=== PATIENT | male | born 1935 | race Caucasian/White ===

== ENCOUNTER 2019-01-22 05:53 | Observation (INO) | payer OTHER ==
[~2019-01-22] VITALS: Ht 185.4 cm; Wt 84.1 kg
--- NOTE | ~2019-01-22 | DS ---
PATIENT:JOSE LOCKETT :39 MEDICAL RECORD: [id number] DISCHARGE SUMMARY ADMISSION DATE: 01/22/19 DISCHARGE DATE: DISCHARGE DIAGNOSES: 1. Angina. 2. Coronary artery disease. 3. Hypertension. 4. Status post coronary bypass graft surgery. HOSPITAL COURSE: Mr. Lockett began having chest pain 2 weeks ago, he had an episode of chest pain, got admitted. His troponin was normal. He had the addition of lisinopril to his atenolol and we increased his atenolol from 25 mg b.i.d. to 50 mg b.i.d., added lisinopril 10 mg b.i.d. Will follow up next week to see with optimal medical management if he continues to have pain. TRANSINT:[id number] Voice Confirmation ID: [id number] DOCUMENT ID: [id number] AGUSTINA DAVID MD CC: [id number] DICTATION DATE: 01/22/19 1208 BATHROOM TILING PROFESSIONAL: 01/22/19 1258 ADM IN [address] [place] [address]
--- NOTE | ~2019-01-22 | DS ---
PATIENT:JOSE LOCKETT :[birth year] MEDICAL RECORD: [id number] DISCHARGE SUMMARY ADMISSION DATE: 01/22/19 DISCHARGE DATE: 01/23/19 DATE OF SERVICE: 01/23/2019 DIAGNOSES: 1. Non-Q-wave myocardial infarction. 2. Coronary artery disease. 3. Hypertension. 4. Hyperlipidemia. HISTORY AND HOSPITAL COURSE: Mr. Lockett presented with a non-Q-wave myocardial infarction, found to have significant disease of the vein graft to the RCA. Underwent successful PTCA and stent of this territory. Discharged home with the addition of Plavix to his medical regimen. He is already on a beta-edson and statin. He will follow up with [facility] in 1 month. TRANSINT:[id number] Voice Confirmation ID: [id number] DOCUMENT ID: [id number] AGUSTINA DAVID MD CC: [id number] DICTATION DATE: 01/23/19 1010 HVAC MANAGER: 01/23/19 1039 DIS IN 01/23/19 [facility] [address] [id number]
--- NOTE | ~2019-01-22 | OP ---
PATIENT NAME: JOSE AGUAYO MEDICAL RECORD: [id number] :39 LOCATION:D.M2 D.2123 ADMISSION DATE:01/22/19 SURGEON: AGUSTINA DAVID MD DATE OF OPERATION: 01/22/2019 PROCEDURES: 1. PTCA stent vein graft to RCA. 2. Left heart catheterization. 3. Selective coronary angiography. 4. Left ventriculogram. 5. Vein graft angiography. INDICATION: Non-Q-wave myocardial infarction. DESCRIPTION OF PROCEDURE: After informed consent was obtained and after a detailed description of risks, benefits as well as alternative therapies, the patient elected to proceed with angiogram and angioplasty. The right femoral area was prepped and draped in normal sterile fashion. Right femoral artery was cannulated via modified Seldinger technique with placement of 6-Romanian sheath. All catheters exchanged through this sheath. FINDINGS: The left ventriculogram was performed in standard 30-degree THOMPSON view, reveals global hypokinesis throughout all segments. Overall ejection fraction estimated at 35%. SELECTIVE CORONARY ANGIOGRAPHY: 1. Left main showed no significant angiographic disease. 2. Left anterior descending has previously placed stents, these are widely patent with no significant restenosis. No disease elsewise at the LAD or its branches. 3. Left circumflex is closed. 4. Vein graft to circumflex is widely patent. Distal circumflex is widely patent. 5. The right coronary artery has previously placed stents leading into a non-grafted PLV. These are open. There is up to 50+ percent in-stent restenosis, but no critical flow limiting stenosis. 6. Vein graft to the right coronary artery PDA is patent; however, there is 90% in-stent restenosis proximally. PTCA STENT OF THE VEIN GRAFT TO THE RCA: The stent used was a 4.5 x 8 mm [place]. Result was 0% residual stenosis. OVERALL IMPRESSION: Successful percutaneous transluminal coronary angioplasty stent of the vein graft to the right coronary artery going from 90% initial stenosis to 0% residual. TRANSINT:[id number] Voice Confirmation ID: [id number] DOCUMENT ID: [id number] OPERATIVE REPORT [id number] JOSE AGUAYO AGUSTINA DAVID MD CC: [id number] DICTATION DATE: 01/22/19 1328 CURB AND GUTTER LABORER: 01/22/19 1334 [place] [address]
--- NOTE | ~2019-01-22 | HEMODYNAMI ---
PATIENT:JOSE AGUAYO MEDICAL RECORD: [id number] : 39 LOCATION:[address] ADMISSION DATE: 01/22/19 Generatedon:01/22/201913:28 Patient name: JOSE AGUAYO Patient #: [id number] SSN: : 1935 Date of study: 01/22/2019 Page: Of Hemodynamic Procedure Report Patient Data Patient Demographics Procedure consent was obtained First Name: JOSE Gender: Male Last Name: DEDE : 1935 [facility] Initial: R Age: 83 year(s) Patient #: [id number] Race: Additional ID: [id number] Contact details Address: [address] [place] [address] State: [place] City: [place] Zip code: [address] Past Medical History History of disease Date Diagnosis Comments CAD Hypertension Peripheral vascular disease Allergies: No known allergies Admission Admission Data Admission Date: 01/22/2019 Admission Time: 6:35 Room #: [facility] Lab Results Lab Result Date: 01/22/2019 Lab Result Time: 6:06 Biochemistry Name Units Result Min Max BUN mg/dl 20 --(----)*- 7 18 Creatinine mg/dl 1.1 --(--*-)-- 0.6 1.3 Troponin l ng/ml 4.6 --(----)-* 0 0.06 CBC Name Units Result Min Max Hematocrit % 53.8 --(---*)-- 42 54 Hemoglobin g/dl 19.1 --(----)-* 13.5 17.5 Procedure Procedure Types Cath Procedure Diagnostic Procedure LHC LHC w/Coronaries w/Grafts Sedation Charges Moderate Sedation up to 15 minutes PCI Procedure AMI/SVG/AQUATICS SPECIALIST PTCA or Stent SVG-BMS/NELA Initial Procedure Description Procedure Date Procedure Date: 01/22/2019 Procedure Start Time: 13:12 Procedure End Time: 13:27 Procedure Staff Name Function Rachid Baez MD Performing Physician Jere Morel RT Monitor Lily Mcgrath RT Scrub Petr De Santiago RN Nurse Procedure Data Cath Procedure Fluoroscopy Diagnostic fluoroscopy Total fluoroscopy Time: 4.2 time: 4.2 min min Diagnostic fluoroscopy Total fluoroscopy dose: 851 dose: 851 mGy mGy Contrast Material Contrast Material Type Amount (ml) Isovue 300 66 Entry Location Entry Primary Successful Side Size Upsize Upsize Entry Closure Succes sful Closure Location (Fr) 1 (Fr) 2 (Fr) Remarks Device Remarks Femoral Right 5 Fr 6 Fr Exoseal artery Short Estimated blood loss: 10 ml Diagnostic catheters Device Type Used For End Catheter Placement MULTIPACK Pigtail 5 Fr Procedure catheter MULTIPACK JL 4.0 5Fr Procedure catheter DIAGNOSTIC AR2 MOD 5 Fr Procedure catheter ([id number]) Procedure Complications No complications Procedure Medications Medication Administration Route Dosage 0.9% NaCl I.V. 100 ml/hr Oxygen etCO2 Nasal cannula 2 l/min Heparin Flush Bag added to field 2 bags (1000units/500ml NS) Lidocaine 2% added to field 20 Versed I.V. 1 mg Fentanyl I.V. 50 mcg Versed I.V. 1 mg Fentanyl I.V. 50 mcg Heparin Bolus I.V. 4000 units Hemodynamics Rest HGB: 19.1 (g/dl) Heart Rate: 53 (bpm) Snapshots Pre Cath Intra NCS Post Cath Vital Signs Time Heart Resp SPO2 etCO2 NIBP (mmHg) Rhythm Pain Sedation Rate (ipm) (%) (mmHg) Status Level (bpm) 12:57:40 59 12 92 22.5 145/85(113) NSR 0 (11) 10(A) , No pain 13:02:02 61 10 91 18 91/77(90) NSR 0 (11) 10(A) , No pain 13:06:45 59 13 91 12 136/84(108) NSR 0 (11) 10(A) , No pain 13:11:03 60 18 92 24 117/76(90) NSR 0 (11) 9(A) , No pain 13:15:09 62 16 91 18 126/87(110) NSR 0 (11) 9(A) , No pain 13:19:25 64 13 92 24.8 115/66(85) NSR 0 (11) 9(A) , No pain 13:23:35 65 11 92 27 123/74(103) NSR 0 (11) 10(A) , No pain 13:27:45 65 15 90 27 124/86(114) NSR 0 (11) 10(A) , No pain Medications Time Medication Route Dose Verified Delivered Reason Notes Effectiveness by by 13:06:15 0.9% NaCl I.V. 100 Petr Petr Per physician ml/hr Anyi De Santiago RN RN 13:06:28 Oxygen etCO2 2 Petr Petr for low 02 sats Nasal l/min Anyi De Santiago cannula RN RN 13:06:39 Heparin Flush added 2 Petr Petr used for Bag to bags Anyi De Santiago procedure (1000units/500ml field RN RN NS) 13:06:52 Lidocaine 2% added 20ml Petr Petr for local to vial Lorpanchito De Santiago anesthetic field RN RN 13:07:30 Versed I.V. 1 mg Petr Petr for sedation Anyi De Santiago RN RN 13:07:39 Fentanyl I.V. 50 Petr Petr for sedation mcg Anyi De Santiago RN RN 13:12:30 Versed I.V. 1 mg Petr Petr for sedation Anyi De Santiago RN RN 13:12:37 Fentanyl I.V. 50 Petr Petr for sedation mcg Anyi De Santiago RN RN 13:19:01 Heparin Bolus I.V. 4000 Petr Petr for units Anyi De Santiago anticoagulation RN barn operator Log Time Note 12:28:08 Signed procedure consent form obtained from patient. 12:28:09 Diagnostic Cath status Elective 12:28:10 Time tracking: Regular hours (M-F 7:00 - 5:00) 12:28:14 Plan of Care:Hemodynamics will remain stable., Cardiac rhythm will remain stable., Comfort level will be maintained., Respiratory function will remain adequate., Patient/ family verbilizes understanding of procedure., Procedure tolerated without complication., Recovers from procedure without complications.. 12:30:52 Jere Morel RT(R) sent for patient. Start room use. 12:53:55 Patient received from Med II to CCL 1 Alert and oriented. Tansferred to table in Supine position. 12:53:56 Warm blankets applied, and caren hugger turned on for patient comfort. 12:53:58 Correct patient and procedure confirmed by team. 12:54:38 H&P Date Dictated: 01/22/2019 Within 30 days and on chart.. 12:54:40 Pre-procedure instructions explained to patient. 12:54:40 Pre-op teaching completed and patient verbalized understanding. 12:54:42 Family in patients room. 12:54:43 Patient NPO since Midnight. 12:54:52 Patient allergic to No known allergies 12:54:53 Is the patient allergic to Iodine/contrast media? No. 12:54:54 Is patient on blood thinner?Yes 12:54:57 ACC The patient was administered the following blood thiners within the last 24 hours: ACCPlavix 12:55:00 Patient diabetic? No. 12:55:03 Previous problem with sedation/anesthesia? No ? 12:55:05 Snore? No 12:55:06 Sleep apnea? No 12:55:07 Deviated septum? No 12:55:07 Opens mouth fully? Yes 12:55:08 Sticks out tongue? Yes 12:55:10 Airway obstruction? No ? 12:55:14 Dentures? Yes in tight 12:55:32 IV patent on arrival in right forearm with 0.9% NaCl at [facility]. 12:56:06 Lab Result : BUN 20 mg/dl 12:56:07 Lab Result : Hemoglobin 19.1 g/dl 12:56:07 Lab Result : Creatinine 1.1 mg/dl 12:56:07 Lab Result : Hematocrit 53.8 % 12:56:17 Lab Result : Troponin l 4.6 ng/ml 12:56:18 Lab results completed and on chart. 12:56:20 Right groin area was prepped with chlora-prep and draped in sterile fashion 12:56:21 Alarms reviewed by R. N. 12:56:21 Sharps counted by scrub and verified by R.N. 12:56:25 Use device set Femoral Dx 12:56:25 ACIST Syringe (80505) opened to sterile field. 12:56:27 Bag Decanter (2002) opened to sterile field. 12:56:29 Medline Cath Pack ([id number]) opened to sterile field. 12:56:29 DIAGNOSTIC WIRE .035 260cm J wire (157205) opened to sterile field. 12:56:30 ACIST Hand Control (81080) opened to sterile field. 12:56:31 ACIST Manifold (94705) opened to sterile field. 12:56:31 Tegaderm 4 x 4 (1626W) opened to sterile field. 12:56:33 SHEATH 5FR [place] (VCV247) opened to sterile field. 12:56:34 DIAGNOSTIC Multipack 5Fr catheter set (NA1900) opened to sterile field. 12:56:38 ECG and BP/O2 sat monitors applied to patient. 12:56:39 Vital chart was started 12:56:40 Baseline sample Acquired. 12:57:02 Rhythm: sinus rhythm 12:57:04 Full Disclosure recording started 13:02:33 Zero performed for pressure channel P1 13:06:15 0.9% NaCl 100 ml/hr I.V. was administered by Petr De Santiago RN; Per physician; :06:24 Physician arrived 13:06:24 --------ALL STOP TIME OUT------ 13:06:24 Final Timeout: patient, procedure, and site verified with staff and physician. All members of the team are in agreement. 13:06:26 Right groin site verified by team. 13:06:28 Oxygen 2 l/min etCO2 Nasal cannula was administered by Petr De Santiago RN; for low 02 sats; 13:06:30 Maximum allowable Isovue 300 dose 300ml. Physician notified. (300ml for normal creatinines. For patients with creatinine of 1.7 or higher multiply weight(kg) x 5 divided by creatinine.) 13:06:33 Fire Safety Assessment: A--An alcohol-based skin anteseptic being used preoperatively., C--Open oxygen or nitrous oxide is being used., D--An ESU, laser, or fiber-optic light is being used. 13:06:36 Physical assessment completed. ASA score P 2 - A patient with mild systemic disease as per Rachid Baez MD. 13:06:39 Heparin Flush Bag (1000units/500ml NS) 2 bags added to field was administered by Petr De Santiago RN; used for procedure; 13:06:42 Sedation plan: IV Moderate Sedation Medication:Versed, Fentanyl 13:06:52 Lidocaine 2% 20ml vial added to field was administered by Petr De Santiago RN; for local anesthetic; 13:07:30 Versed 1 mg I.V. was administered by Petr De Santiago RN; for sedation; 13:07:39 Fentanyl 50 mcg I.V. was administered by Petr De Santiago RN; for sedation; 13:12:07 Procedure started. 13:12:10 Local anesthetic to right femoral artery with Lidocaine 2% by Rachid Baez MD.INITIAL ACCESS ONLY 13:12:30 Versed 1 mg I.V. was administered by Petr De Santiago RN; for sedation; 13:12:37 Fentanyl 50 mcg I.V. was administered by Petr De Santiago RN; for sedation; 13:12:43 A 5 Fr sheath was inserted into the Right Femoral artery 13:12:49 A MULTIPACK Pigtail 5 Fr catheter was advanced over the wire and used for Procedure. 13:13:03 LV gram done using THOMPSON 13:13:05 Injector settings: Ml/sec: 10, Volume: 20, 13:13:07 LV hemodynamics recorded. 13:13:15 EF : 35 % 13:13:26 Catheter exchanged over wire. 13:13:31 A MULTIPACK JL 4.0 5Fr catheter was advanced over the wire and used for Procedure. 13:13:44 LCA angiography performed. 13:14:31 Catheter exchanged over wire. 13:14:52 A DIAGNOSTIC AR2 MOD 5 Fr catheter ([id number]) was advanced over the wire and used for Procedure. 13:15:11 SVG to RCA angiography performed. 13:15:47 RCA angiography performed. 13:15:53 EXOSEAL 6Fr (EX600) opened to sterile field. 13:16:25 SVG to Circ angiography performed. 13:16:28 Catheter removed. 13:16:44 CHOICE PT Extra Support 182cm wire ([id number]) opened to sterile field. 13:16:45 INFLATOR Merit BasixCompak (SC7815) opened to sterile field. 13:16:50 SHEATH 6FR [place] (VJU279) opened to sterile field. 13:16:59 Sheath upsized to a 6 Fr Short. 13:17:15 GUIDE 6FR AR 2.0 SH catheter ([id number]) opened to sterile field. 13:17:17 6 Fr AR 2 SH guide catheter was inserted over the wire 13:18:16 CHOICE PT ES wire advanced. 13:19:01 Heparin Bolus 4000 units I.V. was administered by Petr De Santiago RN; for anticoagulation; 13:19:54 Inflate balloon Inflation number: 1 A NC EUPHORA 4.0 x 12 balloon ([id number]) was prepped and advanced across the Aorta Right -> R PDA, then inflated to 9 ALIDA for 0:10 (min:sec). 13:20:04 Inflation number: 2 The NC EUPHORA 4.0 x 12 balloon ([id number]) was reinflated across the Aorta Right -> R PDA, to 17 ALIDA for 0:10 (min:sec). 13:20:37 Inflation number: 3 The NC EUPHORA 4.0 x 12 balloon ([id number]) was reinflated across the Aorta Right -> R PDA, to 17 ALIDA for 0:10 (min:sec). 13:20:47 Inflation number: 4 The NC EUPHORA 4.0 x 12 balloon ([id number]) was reinflated across the Aorta Right -> R PDA, to 17 ALIDA for 0:10 (min:sec). 13:21:17 Balloon removed over the wire. 13:23:23 Place stent Inflation Number: 5 A CAITLIN RX 4.5 x 12 stent ([id number]) was prepped and advanced across the Aorta Right -> R PDA. The stent was deployed at 17 ALIDA for 0:10 (min:sec). 13:23:31 Stent catheter was removed intact over wire. 13:23:31 Wire removed. 13:23:32 Guide catheter removed. 13:23:40 Sheath removed intact; hemostasis achieved with Exoseal to the Right Femoral artery. 13:23:42 Procedure ended.(Physican Out) 13:25:18 Fluoroscopy time 04.20 minutes. 13:25:23 Flurop Dose total: 851 13:25:23 Fluoroscopy dose: 851 mGy 13:25:30 Contrast amount:Isovue 300 66ml. 13:25:32 Sharps counted by scrub and verified by R.N. 13:25:32 Insertion/operative site no bleeding no hematoma. 13:25:34 Post-op/insertion site Right Femoral artery dressed using a 4 x 4 and Tegaderm. 13:25:38 Post right femoral artery:stable, soft, clean and dry 13:25:39 Post Procedure Pulses reassessed and unchanged 13:25:41 Post-procedure physical assessment completed. ASA score P 2 - A patient with mild systemic disease as per Rachid Baez MD. 13:25:43 Post procedure rhythm: unchanged. 13::45 Estimated blood loss: 10 ml 13::47 Post procedure instruction explained to patient.Patient verbalizes understanding. 13:25:47 Patient needs reinforcement of post procedure teaching. 13:26:07 Procedure type changed to Cath procedure, Diagnostic procedure, LHC, LHC w/Coronaries w/Grafts, Sedation Charges, Moderate Sedation up to 15 minutes, PCI procedure, AMI/SVG/AQUATICS SPECIALIST PTCA or Stent, SVG-BMS/NELA Initial 13:27:12 Procedure and supply charges have been captured, reviewed, submitted and are correct. 13:27:14 Procedure Complication : No complications 13:27:16 Vital chart was stopped 13:27:16 See physician's report for complete and final results. 13:27:18 Report given to PCU. 13:27:20 Patient transfered to PCU with Stretcher. 13:27:22 Procedure ended. 13:27:22 Full Disclosure recording stopped 13:27:25 End room use (Document Last) Intervention Summary Intervention Notes Time ActionType Lesion and Equipment Used Action# Pressure Duration Attributes 13:19:54 Inflate Aorta Right NC EUPHORA 4.0 1 9 00:10 balloon -> R PDA x 12 balloon ([id number]) 13:20:04 Reinflate Aorta Right NC EUPHORA 4.0 2 17 00:10 balloon -> R PDA x 12 balloon ([id number]) 13:20:37 Reinflate Aorta Right NC EUPHORA 4.0 3 17 00:10 balloon -> R PDA x 12 balloon ([id number]) 13:20:47 Reinflate Aorta Right NC EUPHORA 4.0 4 17 00:10 balloon -> R PDA x 12 balloon ([id number]) 13:23:23 Place stent Aorta Right CAITLIN RX 4.5 x 5 17 00:10 -> R PDA 12 stent ([id number]) Device Usage Item Name Manufacture Quantity Catalog Number Hospital Part Current M inimal Lot# / Charge Number Stock Stock Serial# Code ACIST Syringe Acist 1 82239 600266 888088 498171 2 0 (85518) Medical Systems Inc Bag Decanter Microtek 1 2001S 633763 74563 341376 5 (2001S) Medical Inc. Medline Cath Medline 1 [id number] 108206 53556 991092 5 Pack ([id number]) DIAGNOSTIC St Dave 1 081830 587574 140698 246821 3 0 WIRE .035 260cm J wire (151315) ACIST Hand Acist 1 85998 594187 980336 271759 5 Control Medical (36429) Systems Inc ACIST Manifold Acist 1 50163 250417 859240 063032 5 (02234) Medical Systems Inc Tegaderm 4 x 4 3M 1 1626W 814457 815732 706772 5 (1626W) SHEATH 5FR Terumo 1 NRY436 021437 411841 544535 5 [place] (ZGC378) DIAGNOSTIC Cardinal 1 RG8132 738037 22679 818887 3 0 Multipack 5Fr Health catheter set (SC6658) MULTIPACK Cardinal 1 245083 5 Pigtail 5 Fr Health catheter MULTIPACK JL Cardinal 1 132742 5 4.0 5Fr Health catheter DIAGNOSTIC AR2 Cardinal 1 [id number] 150301 079532 614442 2 0 MOD 5 Fr Health catheter (864877G) CHOICE PT Winston 1 [id number] 456645 737371 438102 5 Extra Support Scientific 182cm wire ([id number]) INFLATOR Merit Merit 1 ZQ7091 271795 551784 961752 1 5 Featherlight (CM9878) SHEATH 6FR Terumo 1 KWJ356 794875 465471 640924 4 0 [place] (VYK648) GUIDE 6FR AR Medtronic 1 [id number] 717469 81302 841880 1 2.0 SH catheter ([id number]) NC EUPHORA 4.0 Medtronic 1 [id number] 658248 261221 663237 1 [id number] x 12 balloon ([id number]) CAITLIN RX 4.5 x Medtronic 1 [id number] 530622 4335341 607623 5 [id number] 12 stent ([id number]) EXOSEAL 6Fr Cardinal 1 EX600 123541 265543 973599 1 0 (EX600) Health Signature Audit [place] Stage Time Signature Unsigned Intra-Procedure 01/22/2019 Jere Morel 1:27:59 PM RT(R) Signatures Monitor : Jere Morel RT Signature : Date : Time : [address] [place] [address]
--- NOTE | ~2019-01-22 | HP ---
PATIENT: JOES LOCKETT MEDICAL RECORD: [id number] ACCOUNT: [id number] LOCATION:[address] : 39 ADMISSION DATE: 01/22/19 PCP: CHARISMA SIDDIQUI MD HISTORY AND PHYSICAL EXAMINATION DIAGNOSES: 1. Unstable angina. 2. Coronary artery disease. 3. Status post coronary bypass graft surgery. 4. Hypertension. HISTORY OF PRESENT ILLNESS: Mr. Lockett presents with increasing episodes of chest pain over the past 2 weeks, his first episode was 2 weeks ago. He had a few episodes since then. Last night he had a prolonged episode that lasted for hours, went to the Emergency Room. It was relieved with nitro in the Emergency Room. He has not had any further episodes of pain. His EKG is with a right-bundle, but no acute changes. Troponin is normal. He has been hypertensive with the chest discomfort. He is on atenolol. We have been decreasing his dosage. Each time he has had an episode of chest pain, he has taken his blood pressure and has been in the 180 range. PHYSICAL EXAMINATION: GENERAL APPEARANCE: Well-nourished, well-developed, appears stated age. Level of distress, comfortable. PSYCHIATRIC: Mental status, alert, normal affect. Orientation, oriented to time, place and person. EYES: Lids and conjunctiva, noninjected. No discharge, no pallor. ENT: Lips, teeth, gums, normal dentition. Oropharynx, no cyanosis, no pallor. NECK: Carotid arteries, bilateral normal upstroke, no bruits, no thrills. JUGULAR VEINS: No jugular venous pressure or distention. CERVICAL LYMPH NODES: Nontender, nonenlarged. THYROID: Not enlarged. Nontender. No nodules. LUNGS: Respiratory effort, unlabored. CHEST: Normal curvature. No thoracic deformity. No chest wall tenderness. Percussion, resonant. Auscultation, clear. No wheezes, no rales, no rhonchi. CARDIOVASCULAR: Precordial exam, nondisplaced. No heaves or pericardial thrills. Rate and rhythm, regular. Heart sounds, normal S1, normal S2. No S3, no gallop, no rub. Systolic murmur, not heard. Diastolic murmur, not heard. EXTREMITIES: No cyanosis, no edema. Peripheral pulses, full and equal in all extremities, except as noted. No bruits appreciated. ABDOMEN: Soft, nondistended. Normal aorta. No bruit. Nontender. No masses. Liver, nontender, no hepatomegaly. Spleen, nontender, no splenomegaly. MUSCULOSKELETAL: No joint tenderness. No joint swelling. No erythema. NEUROLOGICAL: Normal gait, normal strength, normal tone. SKIN: Warm and dry. OVERALL IMPRESSION: Chest pain associated with hypertension. At this time, we will optimize medical management. We will increase his atenolol back to 50 mg b.i.d. rather than 25 mg b.i.d., which he has been at. We will also add lisinopril 10 mg b.i.d. We will give him sublingual nitro. We will see him back in the clinic Friday or Friday and decide on risk stratification depending upon his continued chest pain with better blood pressure control. TRANSINT:[id number] Voice Confirmation ID: [id number] DOCUMENT ID: [id number] HISTORY AND PHYSICAL [id number] JOSE LOCKETT JEFFREY MD CC: [id number] DICTATION DATE: 01/22/19 1208 CARTON MAKER: 01/22/19 1225 ADM IN [facility] [address] [id number]
[~2019-01-22 05:53] MED LIST: ATROVENT 0.06%15 ML NS; BABY ASPIRIN81 MG PO; CHLORPHENIRAMINE; DIPHENHYDRAMINE; FISH OIL 1,0001 CA1 PO; PLAVIX75 MG PO; PRAVACHOL20 MG PO; PRILOSEC20 MG PO; SUDOGEST PE10 MG PO; TENORMIN50 MG PO
[2019-01-22 06:13] VITALS: BP 181/99
[2019-01-22 06:32] LABS: APTT 38.8 SECONDS (22.8-39.4); INR 1.06 (0.85-1.17); PROTIME 13.3 SECONDS (11.6-15.0)
[2019-01-22 06:33] LABS: BASOPHILS 0.2 % (0-2); EOSINOPHILS 4.1 % (0-7); HEMATOCRIT 53.8 % (42.0-54.0); HEMOGLOBIN 19.1 g/dL (13.5-17.5); IMMATURE GRANULOCYTES 0.3 % (0-5); MCH 32.4 pg (26.0-34.0); MCHC 35.5 g/dL (31.0-37.0); MCV 91.3 fL (80.0-100.0); MONOCYTES 10.4 % (2-11); PLATELET COUNT 175 10x3/uL (130-400); RBC 5.89 10x6/uL (4.20-6.10); RDW 14.1 % (11.5-14.5); WBC 8.8 10x3/uL (4.8-10.8)
[2019-01-22 06:37] LABS: ALBUMIN 4.1 g/dL (3.4-5.0); ALKALINE PHOSPHATASE 105 U/L (46-116); ALT (SGPT) 27 U/L (10-68); CALC OSMOLALITY 282 mosm/kg (275-300); CALCIUM 9.6 mg/dL (8.5-10.1); CARBON DIOXIDE 26.4 mmol/L (21.0-32.0); CHLORIDE - SERUM 105 mmol/L (98-107); CREATININE - SERUM 1.1 mg/dL (0.6-1.3); GLUCOSE 120 mg/dL (74-106); POTASSIUM - SERUM 4.3 mmol/L (3.5-5.1); PROTEIN - SERUM 8.8 g/dL (6.4-8.2); SODIUM 140 mmol/L (136-145); UREA NITROGEN 20 mg/dL (7-18); eGFR NON AFRICAN AMERICAN 68 mL/min (90-120)
[2019-01-22 06:50] LABS: CKMB 1.9 U/L (0.0-3.6); CREATINE KINASE 72 UL (21-232); MAGNESIUM - SERUM 2.2 mg/dL (1.8-2.4); TROPONIN-I < 0.017 ng/mL (0.000-0.060)
--- NOTE | 2019-01-22 07:20 | NUR ---
RECIEVED FROM ER. DENIES ANY PAIN. TELEMERTY SHOWS 62. SL TO RIGHT AC. UP AB NASREEN. FAMILY AT BEDSIDE. NPO UNTIL SEEN BY DR. CARDOSO UP WITH CALL LIGHT IN REACH
[2019-01-22] MEDS ORDERED: PRINIVIL10 MG PO (10:29)
[2019-01-22] MEDS ORDERED: NITROSTAT0.4 MG SL (10:30)
[2019-01-22 11:07] VITALS: Ht 185.4 cm; Wt 84.1 kg
--- NOTE | 2019-01-22 11:12 | NUR ---
ASSESSMENT COMPLETE PT AAOX4 DENIES ANY PAIN OR DISCOMFORT NAD NOTED
--- NOTE | 2019-01-22 12:00 | NUR ---
TO OVEREDGER PER BED
[2019-01-22 13:24] VITALS: BP 174/84
--- NOTE | 2019-01-22 13:50 | NUR ---
BACK FROM DIRECTOR OF FIELD COORDINATION. V/S STABLE. TELEMERTY SHOWS SR. RIGHT GROIN SOFT WITH DRSG DRY AND INTACT, PPP. FAMILY AT BEDSIDE, SEDATED BUT AWAKENS EAISLY. WILL MONITOR
--- NOTE | 2019-01-22 18:49 | NUR ---
PT LYING QUIETLY. DRSG TO RIGHT GROIN DRY AND INTACT. PPP. TELEMERTY SHOWS SR. FAMILY AT BEDSIDE
--- NOTE | 2019-01-22 19:10 | NUR ---
ASSISTED PT WITH COFFEE AND COMFORT BED IS LOW AND SRX2 CALL LIGHT IS PLACE AND DENIES ANY PAIN OR NEEDS DRSG TO RT FEM IS INTACT WITH NO BLEEDING AND PULSES ARE INTACT
[2019-01-22 20:00] VITALS: BP 142/70
--- NOTE | 2019-01-22 21:26 | NUR ---
PT BECAME UPSET AND REFUSED HOSPITAL MEDS STATING THAT WE CHARGE TOO MUCH..HE HAS PILLS BUT THEY ARE NOT LABELED ... I ATTEMPTED TO EXPLAIN HOW THE PROCESS OF TAKING HIS OWN MEDS WOULD WORK BUT HE WOULD NOT ENTERTAIN THAT. PT HAS MEDS WITH HIM THAT ARE NOT LABELED...PT IS OTHERWISE ALERT AND COMPITANT TO MAKE DECISIONS SO I REMOVED THE MED I PROVIDED AND CHARTED REFUSED
[2019-01-23] VITALS: BP 130/60
[2019-01-23 06:22] VITALS: BP 123/65
--- NOTE | 2019-01-23 07:36 | NUR ---
ROUNDING DONE WITH PATIENT SITTING IN CHAIR WITH GLASSES ON. RIGHT GROIN DRESSING IS C/D/I. ON HEART MONITOR SHOWING SB W BBB, HR 53. ON ROOM AIR. RIGHT AC PIV SEEN WITH SALINE LOCK. DENIES NEEDS AT THIS TIME, WANTS TO GO HOME.
[2019-01-23] MEDS ORDERED: PLAVIX75 MG PO (08:32)
[2019-01-23 09:36] VITALS: BP 151/72
--- NOTE | 2019-01-23 10:32 | NUR ---
SALINE LOCK REMOVED WITH CATH TIP INTACT. PATIENT DID NOT WANT TAPE PLACED OVER THIS AREA, WANTED COBAN. INSTRUCTED TO REMOVE IN 15 MIN. STATES TO UNDERSTANDING. VERBAL AND WRITTEN DISCHARGE INSTRUCTIONS GIVEN TO PAITENT AND . DISCHARGED HOME VIA WHEELCHAIR.
--- NOTE | 2019-01-25 08:45 | MORECARE ---
CASE MANAGEMENT DISCHARGE SUMMARY PATIENT: JOSE AGUAYO UNIT: [id number] ADM DATE: 01/22/19 AGE: 83 : 39 SEX: M ROOM/BED: D.2123 AUTHOR: MEEK JOHNSON PHYSICIAN: REFERRING PHYSICIAN: AGUSTINA DAVID MD DATE OF SERVICE: 01/25/19 Discharge Plan Patient Name: [facility] 1935 Planned Disposition: Home Anticipated Discharge Date: 01/23/19 Discharge Date: 01/23/2019 Expected LOS: 1 Initial Reviewer: [email or web address] Initial Review Date: 01/25/2019 Generated: 01/25/19 9:45 am Patient Name: JOSE AGUAYO Page [id number] at 0845 All edits/amendments must be made on the electronic document DICTATION DATE: 01/25/1945 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
== END 2019-01-23 10:34 | disposition home or self-care (01) ==
LOC: D.ER 05:53 → OBSVTIME 06:35 → D.M2 06:35
PROVIDERS: Emergency Medicine; ADMIT Internal Medicine Interventional Cardiology; ATTEND Internal Medicine Interventional Cardiology
DX: I21.4 Non-ST elevation (NSTEMI) myocardial infarction (principal); I25.110 Atherosclerotic heart disease of native coronary artery with unstable angina pectoris; I10 Essential (primary) hypertension; E78.5 Hyperlipidemia, unspecified
CPT/HCPCS: 93459; C9604